=== PATIENT | female | born 1980 | race Caucasian/White ===

== ENCOUNTER 2022-10-01 12:39 | Emergency (ER) | payer SELFPAY ==
[~2022-10-01] VITALS: Ht 167.6 cm; Wt 45.0 kg
[2022-10-01 12:43] VITALS: BP 116/0
== END 2022-10-01 16:51 | disposition left against medical advice (07) ==
LOC: ER 12:55
DX: F29 Unspecified psychosis not due to a substance or known physiological condition (principal); F22 Delusional disorders; Z76.5 Malingerer [conscious simulation]
CPT/HCPCS: 99283